=== PATIENT | female | born 1990 | race Caucasian/White ===

== ENCOUNTER 2020-08-17 10:28 | Emergency (ER) | payer OTHER ==
[~2020-08-17] VITALS: Ht 172.7 cm; Wt 68.0 kg
[2020-08-17] MEDS ORDERED: CITALOPRAM20 MG/10 M PO (11:05)
== END 2020-08-17 14:39 | disposition home or self-care (01) ==
LOC: ER 10:28
DX: S63.690A Other sprain of right index finger, initial encounter (principal); X50.0XXA Overexertion from strenuous movement or load, initial encounter; Y93.16 Activity, rowing, canoeing, kayaking, rafting and tubing; Y92.838 Other recreation area as the place of occurrence of the external cause; Y99.8 Other external cause status